=== PATIENT | male | born 1965 | race Caucasian/White ===

== ENCOUNTER → 2018-03-30 10:21 | Outpatient (CLI) | payer OTHER, SELFPAY ==
--- NOTE | 2018-03-30 | DI.RAD.S_ITS ---
PROCEDURE: XR LUMBAR SPINE 2-3V INDICATIONS: LOW BACK PAIN/RT SHOULDER PAIN TECHNIQUE: 3 views of the lumbar spine were acquired. COMPARISON: [facility], CR, XR LUMBAR SPINE 2 OR 3 VIEWS, 01/14/2018, 15:34. [facility], CR, XR LUMBAR SPINE 2 OR 3 VIEWS, 10/30/2017, 11:17. [facility], CR, L-SPINE 2-3 VIEWS, 10/16/2017, 10:30. FINDINGS: Bones: 5 [id number] vertebrae are present. There is normal bony alignment after L5-S1 bilateral transverse pedicle screws and vertical fixation lakeisha placement with stable positioning of an interbody disc prosthesis at L5 S1.. No vertebral body compression fractures. No suspicious bony lesions. Soft tissues: Overlying bowel gas pattern is normal. No suspicious soft tissue calcifications. IMPRESSION: Stable postoperative change along the lumbosacral spine, with reference to the comparison plain film imaging, and no new degenerative change found. Dictated by: Ashvin Rey M.D. on 03/30/2018 at 12:02 Approved by: Ashvin Rey M.D. on 03/30/2018 at 12:04
--- NOTE | 2018-03-30 | DI.RAD.S_ITS ---
PROCEDURE: XR SHOULDER LT MIN 2V INDICATIONS: LOW BACK PAIN/RT SHOULDER PAIN TECHNIQUE: 3 views of the shoulder were acquired. COMPARISON: None. FINDINGS: Bones: No fractures or dislocations. No suspicious bony lesions. Visualized ribs appear intact. Prior distal left acromioplasty. Soft tissues: No suspicious soft tissue calcifications. IMPRESSION: Prior acromioplasty, a source of new left shoulder pain is not identified. Dictated by: Ashvin Rey M.D. on 03/30/2018 at 12:02 Approved by: Ashvin Rey M.D. on 03/30/2018 at 12:02
== END ==
PROVIDERS: Family Provider Family Medicine; PCP Family Medicine
DX: M25.512 Pain in left shoulder (principal); M54.5 Low back pain
CPT/HCPCS: 72100; 73030